=== PATIENT | male | born 1940 | race Caucasian/White ===

== ENCOUNTER → 2018-11-05 18:15 | Outpatient (REF) | payer MEDICARE, BC, SELFPAY ==
[2018-11-05 19:11] LABS: BUN Creatinine Ratio 17.3 (6-22); Blood Urea Nitrogen 19 mg/dL (9-20); Calcium 9.5 mg/dL (8.4-10.2); Carbon Dioxide 26 mmol/L (22-32); Chloride 102 mmol/L (98-107); Cholesterol 137 mg/dL (140-199); Estimated Glomerular Filt Rate > 60.0 mL/min (>60); Glucose 125 mg/dL (80-110); HDL Cholesterol 39 mg/dL (40-60); HEMOLYSIS < 15 (0-50); LDL Cholesterol Calculated 61 mg/dL (<100); Potassium 4.5 mmol/L (3.4-5.1); Sodium 139 mmol/L (137-145); Triglycerides 186 mg/dL (35-150)
[2018-11-05 19:29] LABS: Hemoglobin A1C% w Est Avg Glu 6.2 % (4.0-6.0)
== END ==
LOC: LAB 18:15
PROVIDERS: Family Provider Family Medicine Geriatric Medicine; PCP Family Medicine Geriatric Medicine; Visit Provider Family Medicine Geriatric Medicine
DX: E78.5 Hyperlipidemia, unspecified (principal)
CPT/HCPCS: 36415; 80048; 80061; 83036

== ENCOUNTER → 2022-02-09 10:11 | Outpatient (CLI) | payer MEDICARE, OTHER, SELFPAY ==
--- NOTE | 2022-02-09 10:15 | DI.RAD.S_ITS ---
PROCEDURE: XR LUMBAR SPINE MIN 4V INDICATIONS: BACK PAIN TECHNIQUE: 5 views of the lumbar spine were acquired, including bilateral oblique views. COMPARISON: [facility], RG, MRI L-SPINE W/O CONTRAST, 04/18/2021, 12:26. FINDINGS: Bones: Multilevel degenerative changes. Mild chronic appearing height loss of L1 consistent with a remote compression fracture. Anterior osteophytes are seen at multiple levels. There is facet arthrosis at L4-5 and L5-S1. Disc space narrowing at L3-4 and L5-S1. The sacroiliac joints are normal. Soft tissues: Overlying bowel gas pattern is normal. No suspicious soft tissue calcifications. Oblique images: No pars defects. IMPRESSION: 1. Multilevel degenerative changes and facet arthrosis. 2. Disc space narrowing at L3-4 and L5-S1 consistent with disc disease. Dictated by: Cristo Abdi M.D. on 02/09/2022 at 13:10 Approved by: Cristo Abdi M.D. on 02/09/2022 at 13:13
== END ==
PROVIDERS: Family Provider Family Medicine Geriatric Medicine; PCP Family Medicine; Referring Provider Physical Medicine & Rehabilitation; Visit Provider Physical Medicine & Rehabilitation
DX: M47.27 Other spondylosis with radiculopathy, lumbosacral region (principal); M47.26 Other spondylosis with radiculopathy, lumbar region; M48.061 Spinal stenosis, lumbar region without neurogenic claudication; M48.07 Spinal stenosis, lumbosacral region; M16.11 Unilateral primary osteoarthritis, right hip; J45.909 Unspecified asthma, uncomplicated; I10 Essential (primary) hypertension; M54.9 Dorsalgia, unspecified; Z98.890 Other specified postprocedural states; Z95.5 Presence of coronary angioplasty implant and graft; Z79.01 Long term (current) use of anticoagulants
CPT/HCPCS: 72110; 99215

== ENCOUNTER 2022-03-01 10:04 | Outpatient (CLI) | payer MEDICARE, OTHER, SELFPAY ==
[2022-03-01] VITALS (9 sets, daily range): BP systolic 147–186; BP diastolic 58–77; PULSE 60–79; RESP 15–24; TEMP 37.1; O2SAT 94–97
--- NOTE | 2022-03-01 10:07 | DI.RAD.S_ITS ---
PROCEDURE: PAIN L INTERLAMINAR/CAUDAL INJ INDICATIONS: para left L5/S1 TL SIMÓN COMPARISON: [facility], RG, MRI L-SPINE W/O CONTRAST, 04/18/2021, 12:26. [facility], CR, XR LUMBAR SPINE MIN 4V, 02/09/2022, 10:14. FINDINGS: Fluoroscopic spot filming was performed to verify placement of a spinal needle at the L5-S1 level, as labeled on the films. Appropriate location of the needle tip was confirmed by injection of iodinated contrast. IMPRESSION: No significant intraprocedural abnormality. Dictated by: Grady Ha M.D. on 03/01/2022 at 10:48 Approved by: Grady Ha M.D. on 03/01/2022 at 10:48
--- NOTE | 2022-03-01 10:16 | P.PCN_ITS ---
Date/Time/Diagnoses Date of procedure: 03/01/22 Time of procedure: 11:23 Pre-procedure diagnosis: 1. HNP WITH RADICULAR FEATURES, 2. MULTILEVEL CENTRAL STENOSIS, Post-procedure diagnosis: same Procedure Notes Procedure: 1. FLUOROSCOPICALLY GUIDED CONTRAST CONTROLLED INTERLAMINAR EPIDURAL STEROID INJECTION - L5/S1 Indications: Jose Daniel is referred by Dr. Torres for treatment of Bilateral Foraminal Stenosis L>R LE symptoms. Physician: Pieter Jameson Total Fluoroscopy time (seconds): 20 Total sedation minutes: 14 Complications: none Procedure in detail & Post-procedure care: FINDINGS Multilevel Central Spinal Stenosis with Nerve Root Compression DESCRIPTION OF PROCEDURE Fluoroscopically guided, contrast-controlled L5/S1 translaminar epidural steroid injection. Following review of allergy and review of potential side effects and complications, including, but not necessarily limited to, infection, allergic reaction, local tissue breakdown, temporary as well as permanent nerve injury, paralysis, stroke and possible , the patient indicated that the patient understood and agreed to proceed. An informed consent document was signed by the patient, witnessed by a nurse, and placed in the patient's chart. Additionally, other treatment options including modalities, medications, and physical therapy were reviewed with the patient. After review of previous anaesthesic history and IV conscious sedation the patient was deemed safe to proceed with today?s procedure with IV conscious sedation as ASA class II designation. Safety time-out was performed to confirm p atient ID, procedure to be performed and site of procedure. IV sedation was accomplished with a combination of 2mg of Versed administered by the RN after DO order, titrated to patient comfort during the course of the procedure while the patient remained responsive to all verbal commands. In the prone position, following sterile prep and drape of the lumbar region, the L5/S1 translaminar space was identified fluoroscopically. The skin was anesthetized via a 25-gauge, 1.5-inch needle with 1% lidocaine solution. At this point, a 22-gauge short bevel spinal needle was atraumatically introduced and advanced under fluoroscopic guidance into the region of the L5/S1 translaminar space. Depth was confirmed on lateral view. Radiological data, including multiple fluoroscopic views of the lumbar spine, reveal a spinal needle at the L5/S1 translaminar space. Lateral views then show placement of the needle in the epidural space. Subsequent views show contrast material flowing superiorly and inferiorly in the epidural space. No vascular or intrathecal uptake is observed. At this point, using loss of resistance technique with saline and air, the epidural space was entered. This was confirmed following negative aspiration with injection of approximately 1.5cc of Isovue 200, showing excellent epidural flow without vascular or intrathecal uptake. At this point, 1 cc of 1% lidocaine solution combined with 3cc or 20mg of dexamethasone and 6mg of betamethasone was injected without incident. The patent tolerated the procedure without signs of symptoms of complications prior to transfer to the recovery area for further monitoring. The patient was then transferred to the recovery area where they were observed for an appropriate period of time after the injection. The patient reported a VAS score of 6 prior to the procedure and a post-procedure VAS of 0. POST OP INSTRUCTIONS The patient was provided a Pain Log to continue to record their response to the target-specific procedure prior to follow-up visit with their referring physician. Additionally, specific post-injection care instructions and a contact number to our office were provided if concerns arise regarding possible complications associated with the procedure are suspected.
[2022-03-01] MEDS: MIDAZOLAM 2 MG/2 ML VIAL IV (11:04)
[2022-03-01] MEDS: BETAMETHASONE 30 MG/5 ML MDV 6 MG INJ (11:09)
[2022-03-01] MEDS: IOPAMIDOL 15 ML VIAL 3 ML INJ (11:09)
[2022-03-01] MEDS: BUPIVACAINE 0.25% (PF) VIAL 2 ML INJ (11:09)
[2022-03-01] MEDS: DEXAMETHASONE 10 MG/ML VIAL 20 MG INJ (11:09)
--- NOTE | 2022-03-01 13:28 | PC.NURSE ---
At d/c patient was steady on feet, able to ambulate steady with cane at baseline. Reports the numbness has resolved. Patient had no questions or concerns at this time.
== END 2022-03-01 12:00 | disposition home or self-care (01) ==
LOC: RAD 10:06
PROVIDERS: Family Provider Family Medicine Geriatric Medicine; PCP Family Medicine; Referring Provider Physical Medicine & Rehabilitation; Visit Provider Physical Medicine & Rehabilitation
DX: M51.17 Intervertebral disc disorders with radiculopathy, lumbosacral region (principal); M48.07 Spinal stenosis, lumbosacral region
CPT/HCPCS: 62323; 99152; J0702; J1100; J2250

== ENCOUNTER 2023-01-03 14:14 | Outpatient (CLI) | payer MEDICARE, OTHER, SELFPAY ==
--- NOTE | 2023-01-03 14:16 | DI.RAD.S_ITS ---
PROCEDURE: PAIN L/S TRANSFORAMINAL INJECT INDICATIONS: SPONDYLOSIS COMPARISON: [facility], RG, CT L SPINE WITHOUT CONTRAST, 12/09/2022, 12:58. FINDINGS: Fluoroscopic spot filming was performed to verify placement of a spinal needle at the L3-L4 level, as labeled on the films. Appropriate location of the needle tip was confirmed by injection of iodinated contrast. IMPRESSION: Intraprocedural examination within normal limits. Dictated by: Grady Ha M.D. on 01/03/2023 at 17:42 Approved by: Grady Ha M.D. on 01/03/2023 at 17:42
[2023-01-03 16:10] VITALS: BP 134/63; PULSE 67; RESP 20; TEMP 36; O2SAT 100
[2023-01-03 16:54] VITALS: BP 169/71; PULSE 60; RESP 16
[2023-01-03] MEDS: IOPAMIDOL 15 ML VIAL 3 ML INJ (16:55)
[2023-01-03] MEDS: DEXAMETHASONE 10 MG/ML VIAL 20 MG INJ (16:55)
[2023-01-03] MEDS: BUPIVACAINE 0.25% (PF) VIAL 2 ML INJ (16:56)
[2023-01-03] MEDS: BETAMETHASONE 30 MG/5 ML MDV 6 MG INJ (16:56)
[2023-01-03 16:59] VITALS: BP 200/77; PULSE 60; RESP 17; O2SAT 94
--- NOTE | 2023-01-03 17:04 | PM.PROC.IR.1 ---
Date/Time/Diagnoses Date of procedure: 01/03/23 Time of procedure: 17:04 Pre-procedure diagnosis: 1. FORAMINAL STENOSIS WITH LE SYMPTOMS Post-procedure diagnosis: same Procedure Notes Procedure: 1. FLUOROSCOPICALLY GUIDED CONTRAST CONTROLLED TRANSFORAMINAL EPIDURAL STEROID INJECTION - RIGHT L3/4 TFESI Indications: Jose Daniel is referred by Dr. Torres for treatment of Foraminal Stenosis with right LE Symptoms Physician: Pieter Jameson Total Fluoroscopy time (seconds): 9 Total sedation minutes: 0 Complications: none Procedure in detail & Post-procedure care: FINDINGS Foraminal Nerve Root Compression secondary to disc disease and facet hypertrophy DESCRIPTION OF PROCEDURE Following review of allergy and review of potential side effects and complications, including, but not necessarily limited to, infection, allergic reaction, local tissue breakdown, stroke, temporary or permanent nerve injury, paralysis, and possible , the patient indicated that the patient understood and agreed to proceed. An informed consent document was signed by the patient, witnessed by a nurse, and placed in the patient's chart. Additionally, other treatment options including medications, modalities, and physical therapy were reviewed with the patient. After review of previous anaesthesic history and IV conscious sedation the patient was deemed safe to proceed with today?s procedure with IV conscious sedation as ASA class II designation. Safety time-out was performed to confirm patient ID, procedure to be performed and site of procedure. IV sedation was deemed unnecessary and thus not administered by the RN after DO order, titrated to patient comfort during the course of the procedure while the patient remained responsive to all verbal commands In the prone position following sterile prep and drape of the lumbar region, the right L3/4 posterior neuroforamen was identified fluoroscopically. The skin was anesthetized via a 25-gauge 1.5-inch needle with 1% lidocaine solution. At this point, a 25-gauge 3.5-inch spinal needle was atraumatically introduced and advanced under fluoroscopic guidance through the posterior right L3/4 neuroforamen to approximately the anterior aspect of the canal. Depth was confirmed on lateral view. Following negative aspiration, injection of approximately 1.5 cc of Isovue 200 under live fluoroscopy in the AP view confirmed excellent flow along the nerve root, into the epidural space without vascular or intrathecal uptake observed Radiological data, including multiple fluoroscopic views of the lumbosacral spine, reveal a spinal needle at the right L3/4 posterior neuroforamen. Subsequent views show flow of contrast material flowing superiorly and inferiorly along the nerve root confirming epidural flow. Subsequently, a test dose of 1.5 cc of 1% lidocaine solution was administered and patient was observed for two minutes for signs or symptoms of complications, including abdominal pain, shortness of breath, bilateral upper or lower extremity weakness, nausea and vomiting, prior to steroid injection. At this point, a total of 3cc or 20mg of dexamethasone and 6mg of betamethasone was injected without incident. The patient tolerated the procedure well without signs or symptoms of complications prior to transfer to the recovery area continued monitoring without incident. The patient was then transferred to the recovery area where they were observed for an appropriate time after the injection. The patient reported a VAS score of 7 prior to the procedure and a post-procedure VAS of 0. POST OP INSTRUCTIONS The patient was provided a Pain Log to continue to record their response to the target-specific procedure prior to follow-up visit with their referring physician. Additionally, specific post-injection care instructions and a contact number to our office were provided if concerns arise regarding possible complications associated with the procedure are suspected.
[2023-01-03 17:05] VITALS: BP 126/60; PULSE 83; RESP 20; O2SAT 98
== END 2023-01-03 17:10 | disposition home or self-care (01) ==
LOC: RAD 14:16
PROVIDERS: Family Provider Family Medicine Geriatric Medicine; PCP Family Medicine; Referring Provider Physical Medicine & Rehabilitation; Visit Provider Physical Medicine & Rehabilitation
DX: M48.061 Spinal stenosis, lumbar region without neurogenic claudication (principal); M51.16 Intervertebral disc disorders with radiculopathy, lumbar region
CPT/HCPCS: 64483; J0702; J1100; J2250; J3490

== ENCOUNTER 2023-03-23 07:24 | Outpatient (CLI) | payer MEDICARE, OTHER, SELFPAY ==
[2023-03-23] VITALS (9 sets, daily range): BP systolic 133–181; BP diastolic 62–86; PULSE 60–72; RESP 16–24; TEMP 36.1; O2SAT 93–95
--- NOTE | 2023-03-23 07:26 | DI.RAD.S_ITS ---
PROCEDURE: PAIN L/SI FACET INJ/BLK 1STL INDICATIONS: SPONDYLOSIS COMPARISON: None. FINDINGS: Fluoroscopic spot filming was performed to verify placement of spinal needles at the L2-3, L3-4 and L4-5 level(s), as labeled on the films. Appropriate location(s) of the needle tip(s) was confirmed by injection of iodinated contrast. IMPRESSION: Fluoroscopic angles Approved by: Sherif Kerr M.D. on 03/23/2023 at 17:46
[2023-03-23] MEDS: MIDAZOLAM 2 MG/2 ML VIAL IV (08:33)
[2023-03-23] MEDS: LIDOCAINE 1% 20 ML 5 ML INJ (08:39)
[2023-03-23] MEDS: IOPAMIDOL 15 ML VIAL 3 ML INJ (08:40)
[2023-03-23] MEDS: BETAMETHASONE 30 MG/5 ML MDV 12 MG INJ (08:41)
[2023-03-23] MEDS: BUPIVACAINE 0.5% (PF) 10 ML VIAL 5 ML INJ (08:41)
--- NOTE | 2023-03-23 08:44 | P.PCN_ITS ---
Date/Time/Diagnoses Date of procedure: 03/23/23 Time of procedure: 08:44 Pre-procedure diagnosis: 1. FACET ARTHROPATHY, 2. AXIAL LBP, 3. MULTILEVEL DDD Post-procedure diagnosis: same Procedure Notes Procedure: 1. FLUOROSCOPICALLY GUIDED CONTRAST CONTROLLED FACET JOINT INJECTIONS RIGHT L2/3, L3/4, L4/5 Indications: Jose Daniel is referred by Dr. Torres for treatment of Axial LBP Physician: Pieter Jameson Total Fluoroscopy time (seconds): 8 Total sedation minutes: 10 Complications: none Procedure in detail & Post-procedure care: FINDINGS Multilevel Facet Arthropathy with Clinically significant axial LBP DESCRIPTION OF PROCEDURE Fluoroscopically guided, contrast-controlled right L2/3, L3/4, L4/5 facet joint injections. Following review of allergy and review of potential side effects and complications, including, but not necessarily limited to, infection, allergic reaction, local tissue breakdown, stroke, temporary or permanent nerve injury, paralysis, and possible , the patient indicated that the patient understood and agreed to proceed. An informed consent document was signed by the patient, witnessed by a nurse, and placed in the patient's chart. Additionally, other treatment options including medications, modalities, and physical therapy were reviewed with the patient. After review of previous anaesthesic history and IV conscious sedation the patient was deemed safe to proceed with today?s procedure with IV conscious sedation as ASA class II designation. Safety time-out was performed to confirm patient ID, procedure to be performed and site of procedure. IV sedation was accomplished with a combination of 2mg of Versed administered by the RN after DO order, titrated to patient comfort during the course of the procedure while the patient remained responsive to all verbal commands. In the prone position, following sterile prep and drape of the lumbar region, the posterior aspect of the right L2/3, L3/4, L4/5 facet joints were identified fluoroscopically. The skin was anesthetized via a 25-gauge 1.5-inch needle with 1% lidocaine solution into the corresponding facet joints. At this point, a 22- gauge 3.5-inch spinal needle was atraumatically introduced and advanced under fluoroscopic guidance into the corresponding facet joints. Following negative aspiration, injections of approximately 0.2-cc of Isovue 200 confirmed interarticular placement without vascular uptake. Radiological data, including multiple fluoroscopic views of the lumbosacral spine, reveal a spinal needle at the right L2/3, L3/4, L4/5 facet joints. Subsequent views show flow of contrast material both superiorly and inferiorly within the joint space without vascular or intrathecal uptake. At this point, a total of 0.5cc including a mixture of 0.25 cc Marcaine and 0.25cc betamethasone was injected without complication into each of the corresponding facet joints. The patient tolerated the procedure well without signs or symptoms of complications prior to transfer to the recovery area for further monitoring. The patient was then transferred to the recovery area where they were observed for an appropriate period of time after the injection. The patient reported a VAS score of 7 prior to the procedure and a post-procedure VAS of 0. POST OP INSTRUCTIONS The patient was provided a Pain Log to continue to record their response to the target-specific procedure prior to follow-up visit with their referring physician. Additionally, specific post-injection care instructions and a contact number to our office were provided if concerns arise regarding possible complications associated with the procedure are suspected.
== END 2023-03-23 09:05 | disposition home or self-care (01) ==
LOC: RAD 07:25
PROVIDERS: Family Provider Family Medicine Geriatric Medicine; PCP Family Medicine; Referring Provider Physical Medicine & Rehabilitation; Visit Provider Physical Medicine & Rehabilitation
DX: M47.816 Spondylosis without myelopathy or radiculopathy, lumbar region (principal); M51.36 Other intervertebral disc degeneration, lumbar region
CPT/HCPCS: 64493; 64494; 64495; 99152; J0702; J2250

== ENCOUNTER 2025-03-20 09:58 | Outpatient (CLI) | payer MEDICARE, OTHER, SELFPAY ==
[2025-03-20] VITALS (7 sets, daily range): BP systolic 121–149; BP diastolic 59–66; PULSE 60–70; RESP 14–20; TEMP 36.2; O2SAT 94–98
[2025-03-20] MEDS: MIDAZOLAM 2 MG/2 ML VIAL IV (11:27)
[2025-03-20] MEDS: iopamidoL 15 ML VIAL 3 ML INJ (11:31)
[2025-03-20] MEDS: BUPIVACAINE 0.5% (PF) 10 ML VIAL 2 ML INJ (11:32)
--- NOTE | 2025-03-20 11:43 | PM.PROC.IR.1 ---
Date/Time/Diagnoses Date of procedure: 03/20/25 Time of procedure: 11:43 Pre-procedure diagnosis: 1. FACET ARTHROPATHY Post-procedure diagnosis: same Procedure Notes Procedure: 1. Right L3, L4, L5 MB BLOCKS Indications: Jose Daniel is referred by Dr. Torres for treatment of Right Axial LBP. Physician: Pieter Jameson Total Fluoroscopy time (seconds): 6 Total sedation minutes: 11 Complications: none Procedure in detail & Post-procedure care: DESCRIPTION OF PROCEDURE Fluoroscopically guided, contrast-controlled right L3, L4, L5 medial branch blocks with 0.5cc of 0.5% Marcaine. Following review of allergy and review of potential side effects and complications, including, but not necessarily limited to, infection, allergic reaction, local tissue breakdown, nerve injury, paralysis, stroke and possible , the patient indicated that the patient understood and agreed to proceed. An informed consent document was signed by the patient, witnessed by a nurse, and placed in the patient's chart. After review of previous anaesthesic history and IV conscious sedation the patient was deemed safe to proceed with today?s procedure with IV conscious sedation as ASA class II designation. Safety time-out was performed to confirm patient ID, procedure to be performed and site of procedure. IV sedation was accomplished with a combination of 2mg of Versed was administered by the RN after DO order, titrated to patient comfort during the course of the procedure while the patient remained responsive to all verbal commands In the prone position, following sterile prep and drape of the lumbar region, the right L3, L4, L5 anatomical location of the medial branch of the dorsal ramus was identified fluoroscopically. Subsequently an anesthetic skin wheal using 1% lidocaine solution was initiated at each of the anatomical spots. Subsequently then a 22-gauge 3.5-inch spinal needle was atraumatically introduced and advanced under fluoroscopic guidance at each of the corresponding sites at the right L3, L4, L5 MB. After negative aspiration, 0.2 cc of Isovue 200 was injected, confirming placement without vascular or intrathecal uptake. Subsequently then 0.5cc of 0.5% Marcaine solution was injected at each of the corresponding sites at the right L3, L4, L5 medial branch locations. The patient tolerated the procedure well without signs or symptoms of complications. The procedure tolerated the procedure well without signs or symptoms of complications prior to transfer to the recovery area continued monitoring without incident. Post-procedure, the patient was monitored initiating provocative activities to measure the amount of relief from block of the facetogenic pain. The patient reported a VAS of 7 prior to the procedure and a post-procedure VAS of 1. It has been a pleasure to assist in the diagnostic and therapeutic care of your patient. POST OP INSTRUCTIONS The patient was provided with a Pain Log to complete over the next several hours and subsequent days prior to the patient's follow up with the ordering physician. 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 The patient is aware, was provided, once again, with a Pain Log and will follow up with the referring physician for review and clinical correlation.
== END 2025-03-20 11:58 | disposition home or self-care (01) ==
LOC: RAD 09:59
PROVIDERS: Family Provider Family Medicine Geriatric Medicine; PCP Family Medicine; Referring Provider Physical Medicine & Rehabilitation; Visit Provider Physical Medicine & Rehabilitation
DX: M47.816 Spondylosis without myelopathy or radiculopathy, lumbar region (principal)
CPT/HCPCS: 64493; 64494; 99152; J2250

== ENCOUNTER → 2025-08-20 10:05 | Outpatient (CLI) | payer MEDICARE, OTHER, SELFPAY ==
--- NOTE | 2025-08-20 10:10 | DI.RAD.S_ITS ---
PROCEDURE: XR HIP W PEL IF DONE RT 2V INDICATIONS: RIGHT HIP PAIN TECHNIQUE: AP view of the pelvis and lateral view of the right hip. COMPARISON: None. FINDINGS: Mild bilateral hip osteoarthritis evidence by small marginal osteophytes, but joint spaces are mostly preserved. Degenerative changes of the lower lumbar spine and sacroiliac joints. No acute fracture or dislocation. IMPRESSION: Degenerative changes. No acute fracture. Dictated by: Uvaldo Tellez M.D. on 08/20/2025 at 10:40 Approved by: Uvaldo Tellez M.D. on 08/20/2025 at 10:42
--- NOTE | 2025-08-20 10:10 | DI.RAD.S_ITS ---
PROCEDURE: XR LUMBAR SPINE MIN 4V INDICATIONS: BACK PAIN TECHNIQUE: Five views lumbar spine. COMPARISON: [facility], CR, XR LUMBAR SPINE MIN 4V, 02/09/2022, 10:14. FINDINGS: Chronic multilevel height loss most pronounced at L1, unchanged. Multilevel degenerative disc disease and facet arthropathy the similar to prior. No acute fracture or destructive osseous lesion. Partially imaged cardiac pacemaker wiring. Severe atherosclerosis. IMPRESSION: No acute abnormality. Dictated by: Uvaldo Tellez M.D. on 08/20/2025 at 10:37 Approved by: Uvaldo Tellez M.D. on 08/20/2025 at 10:40
== END ==
PROVIDERS: Family Provider Family Medicine Geriatric Medicine; PCP Family Medicine; Referring Provider Family Medicine; Visit Provider Physical Medicine & Rehabilitation
DX: M47.816 Spondylosis without myelopathy or radiculopathy, lumbar region (principal); M25.551 Pain in right hip; M51.369 Other intervertebral disc degeneration, lumbar region without mention of lumbar back pain or lower extremity pain; I70.90 Unspecified atherosclerosis; M16.0 Bilateral primary osteoarthritis of hip; Z95.0 Presence of cardiac pacemaker
CPT/HCPCS: 72110; 73502